=== PATIENT | female | born 1950 | race Caucasian/White ===

== ENCOUNTER → 2017-03-18 20:27 | Outpatient (CLI) | payer MEDICARE | END | disposition home or self-care (01) | LOC: D.MAMMO 14:00 | DX: Z12.31 Encounter for screening mammogram for malignant neoplasm of breast (principal) ==

== ENCOUNTER 2017-09-20 10:51 | Outpatient (CLI) | payer MEDICARE ==
[~2017-09-20] VITALS: Ht 154.9 cm; Wt 67.3 kg
--- NOTE | ~2017-09-20 | HEMODYNAMI ---
PATIENT:LAURY BERTRAND MEDICAL RECORD: [id number] : 54 LOCATION:[facility] ADMISSION DATE: 09/20/17 Generatedon:09/20/201714:15 Patient name: LAURY BERTRAND Patient #: [id number] SSN: D OB: 1950 Date of study: 09/20/2017 Page: Of Hemodynamic Procedure Report Patient Data Patient Demographics Procedure consent was obtained First Name: LAURY Gender: Female Last Name: ELZA : 1950 Middle Initial: MICHELLE Age: 67 year(s) Patient #: [id number] Race: Unknown Additional ID: [id number] Contact details [address]: [address] [place] [address] State: [place] City: [place] Zip code: [address] Past Medical History Allergies Allergen Reaction Date Comments Reported Other allergy 09/20/2017 ATIVAN, COMPAZINE, ERYTHROMYCIN BASE, PEGANONE, PREDNISONE, XANAX Admission Admission Data Admission Date: 09/20/2017 Admission Time: 10:51 Lab Results Lab Result Date: 09/20/2017 Lab Result Time: 0:00 Biochemistry Name Units Result Min Max BUN mg/dl 20 --(----)*- 7 18 Creatinine mg/dl 0.7 --(*---)-- 0.6 1.3 CBC Name Units Result Min Max Hemoglobin g/dl 13 -*(----)-- 13.5 17.5 Procedure Procedure Types Cath Procedure Diagnostic Procedure LHC LH w/Coronaries Sedation Charges Moderate Sedation up to 15 minutes PCI Procedure Coronary Stent Coronary Stent Initial Procedure Description Procedure Date Procedure Date: 09/20/2017 Procedure Start Time: 13:50 Procedure End Time: 14:13 Procedure Staff Name Function Dale Cardozo MD Performing Physician Ronald Lopez RT Monitor Kanika Velasquez RT Scrub Inocente Zhou RN Nurse Procedure Data Cath Procedure Fluoroscopy Diagnostic fluoroscopy Total fluoroscopy Time: 4.2 time: 4.2 min min Diagnostic fluoroscopy Total fluoroscopy dose: 509 dose: 509 mGy mGy Contrast Material Contrast Material Type Amount (ml) Isovue 300 91 Entry Location Entry Primary Successful Side Size Upsize Upsize Entry Closure Succes sful Closure Location (Fr) 1 (Fr) 2 (Fr) Remarks Device Remarks Femoral Right 5 Fr 6 Fr Exoseal artery Short Estimated blood loss: 10 ml Diagnostic catheters Device Type Used For End Catheter Placement MULTIPACK JL 4.0 5Fr Procedure catheter MULTIPACK 3DRC 5Fr Procedure catheter MULTIPACK Pigtail 5 Fr Procedure catheter Procedure Complications No complications Procedure Medications Medication Administration Route Dosage 0.9% NaCl I.V. 100 ml/hr Oxygen etCO2 Nasal cannula 2 l/min Heparin Flush Bag added to field 2 bags (1000units/500ml NS) Lidocaine 2% added to field 20 Versed I.V. 1 mg Fentanyl I.V. 50 mcg Fentanyl I.V. 50 mcg Versed I.V. 1 mg Heparin Bolus I.V. 6700 units Versed I.V. 0.5 mg Fentanyl I.V. 25 mcg Brilinta P.O. 180 mg Hemodynamics Rest HGB: 13 (g/dl) Heart Rate: 71 (bpm) Pressure Samples Time Site Value (mmHg) Purpose Heart Use Rate(bpm) 13:57 LV 99/-4,11 Snapshot 76 13:57 AO 105/58(78) Pullback 76 13:57 LV 112/0,13 Pullback 76 Gradients Valve Time Site 1 Site 2 Mean SEP/DFP Peak To Heart Use (mmHg) (sec/min) Peak Rate (mmHg) (bpm) Aortic 13:57 LV AO 6 21 7 76 112/0,13 105/58(78) Calculations Valve P-P Mean Valve Index Valve Source Name Gradient Area Flow (cm2) Aortic 7 6 7 6 Snapshots Pre Cath Intra NCS Post Cath Vital Signs Time Heart Resp SPO2 etCO2 NIBP Rhythm Pain Sedation Rate (ipm) (%) (mmHg) (mmHg) Status Level (bpm) 13:47:02 70 15 100 0 118/65(86) NSR 0 (11) 10(A) , No pain 13:51:39 72 22 97 28.4 108/62(86) NSR 0 (11) 10(A) , No pain 13:56:11 76 21 95 38.2 102/79(89) NSR 0 (11) 10(A) , No pain 14:00:46 78 16 92 30 111/64(85) NSR 0 (11) 9(A) , No pain 14:05:22 80 14 95 39.7 112/66(85) NSR 0 (11) 9(A) , No pain 14:10:38 83 15 95 9.7 110/58(76) NSR 0 (11) 10(A) , No pain Medications Time Medication Route Dose Verified Delivered Reason Notes Effectiveness by by 13:46:00 0.9% NaCl I.V. 100 Inocente Inocente Per physician ml/hr Winnie Zhou RN RN 13:46:10 Oxygen etCO2 2 Inocente Inocente Per physician Nasal l/min Winnie Zhou cannula RN RN 13:46:22 Heparin Flush added 2 Inocente Inocente used for Bag to bags Lorblanca Zhou procedure (1000units/500ml RN RN NS) 13:46:35 Lidocaine 2% added 20ml Inocente Inocente for local to vial Lorigan Winnie anesthetic RN RN 13:47:43 Versed I.V. 1 mg Inocente Inocente for sedation Winnie Zhou RN RN 13:47:51 Fentanyl I.V. 50 Inocente Inocente for sedation mcg Winnie Zhou RN RN 13:51:23 Fentanyl I.V. 50 Inocente Inocente for sedation mcg Winnie Zhou RN RN 13:51:31 Versed I.V. 1 mg Inocente Inocente for sedation Winnie Zhou RN RN 14:01:51 Heparin Bolus I.V. 6,700 Inocente Inocente for units Lorblanca Zhou anticoagulation RN RN 14:04:42 Versed I.V. 0.5 Inocente Inocente for sedation mg Winnie Zhou RN RN 14:04:48 Fentanyl I.V. 25 Inocente Inocente for sedation mcg Winnie Zhou RN RN 14:10:14 Brilinta P.O. 180 Inocente Inocente for mg Lorigan Winnie antiplatelet RN RN therapy Procedure Log Time Note 13:30:45 Signed procedure consent form obtained from patient. 13:30:48 Ronald MARINELLI(R) sent for patient. Start room use. 13:30:49 Time tracking: Regular hours (M-F 7:00 - 5:00) 13:30:53 Plan of Care:Hemodynamics will remain stable., Cardiac rhythm will remain stable., Comfort level will be maintained., Respiratory function will remain adequate., Patient/ family verbilizes understanding of procedure., Procedure tolerated without complication., Recovers from procedure without complications.. 13:31:09 H&P Date Dictated: 08/23/2017 Within 30 days and on chart., H&P Addendum completed by physician on day of procedure. (MUST COMPLETE FOR ALL OUTPATIENTS). 13:33:05 Lab Result : BUN 20 mg/dl 13:33:05 Lab Result : Hemoglobin 13 g/dl 13:33:05 Lab Result : Creatinine 0.7 mg/dl 13:34:13 Patient allergic to Other allergyATIVAN, COMPAZINE, ERYTHROMYCIN BASE, PEGANONE, PREDNISONE, XANAX 13:35:38 Patient received from Pre/Post Procedure Room to CCL 1 Alert and oriented. Tansferred to table in Supine position. 13:35:39 Warm blankets applied, and chelo hugger turned on for patient comfort. 13:35:39 Correct patient and procedure confirmed by team. 13:35:40 ECG and BP/O2 sat monitors applied to patient. 13:46:00 0.9% NaCl 100 ml/hr I.V. was administered by Inocente Zhou RN; Per physician; 13:46:10 Oxygen 2 l/min etCO2 Nasal cannula was administered by Inocente Zhou RN; Per physician; 13:46:11 Vital chart was started 13:46:12 Baseline sample Acquired. 13:46:16 Rhythm: sinus rhythm 13:46:18 Full Disclosure recording started 13:46:19 Pre-procedure instructions explained to patient. 13:46:20 Family in waiting room. 13:46:22 Heparin Flush Bag (1000units/500ml NS) 2 bags added to field was administered by Inocente Zhou RN; used for procedure; 13:46:22 Patient NPO since Midnight. 13:46:24 Is the patient allergic to Iodine/contrast media? No. 13:46:25 Is patient on blood thinner?No 13:46:27 Patient diabetic? No. 13:46:29 Previous problem with sedation/anesthesia? No ? 13:46:29 Snore? Yes 13:46:30 Sleep apnea? No 13:46:31 Deviated septum? No 13:46:32 Opens mouth fully? Yes 13:46:32 Sticks out tongue? Yes 13:46:34 Airway obstruction? No ? 13:46:35 Lidocaine 2% 20ml vial added to field was administered by Inocente Zhou RN; for local anesthetic; 13:46:35 Dentures? No ? 13:46:37 Pre procedure: right dorsailis pedis pulse 2+ Normal; easily identifiable; not easily obliterated 13:46:39 Patient pain scale 0/10 ?. 13:46:45 IV patent on arrival in right forearm with 0.9% NaCl at [facility]. 13:46:47 Lab results completed and on chart. 13:46:50 Right groin area was prepped with chlora-prep and draped in sterile fashion 13:46:51 Alarms reviewed by R. N. 13:46:51 Sharps counted by scrub and verified by R.N. 13:46:53 Use device set Femoral Dx 13:46:54 ACIST Syringe (74077) opened to sterile field. 13:46:55 Bag Decanter (2002S) opened to sterile field. 13:46:55 Medline Cath Pack ([id number]) opened to sterile field. 13:46:56 ACIST Hand Control (30931) opened to sterile field. 13:46:57 ACIST Manifold (42511) opened to sterile field. 13:46:58 Tegaderm 4 x 4 (1626W) opened to sterile field. 13:46:59 PERCUTANEOUS ENTRY 19GA needle opened to sterile field. 13:47:02 DIAGNOSTIC WIRE .035 260cm J wire (747476) opened to sterile field. 13:47:03 DIAGNOSTIC Multipack 5Fr catheter set ([id number]) opened to sterile field. 13:47:05 SHEATH Prelude 5Fr 0.035 (FFY-6H-27-035) opened to sterile field. 13:47:11 Physician arrived 13:47:12 --------ALL STOP TIME OUT------ 13:47:12 Final Timeout: patient, procedure, and site verified with staff and physician. All members of the team are in agreement. 13:47:13 Right groin site verified by team. 13:47:15 Physical assessment completed. ASA score P 2 - A patient with mild systemic disease as per Dale Cardozo MD. 13:47:17 Sedation plan: IV Moderate Sedation Medication:Versed, Fentanyl 13:47:43 Versed 1 mg I.V. was administered by Inocente Zhou RN; for sedation; 13:47:51 Fentanyl 50 mcg I.V. was administered by Inocente Zhou RN; for sedation; 13:50:31 Procedure started. 13:50:34 Local anesthetic to right femoral artery with Lidocaine 2% by Dale Cardozo MD.INITIAL ACCESS ONLY 13:51:23 Fentanyl 50 mcg I.V. was administered by Inocente Zhou RN; for sedation; 13:51:31 Versed 1 mg I.V. was administered by Inocente Zhou RN; for sedation; 13:52:23 A 5 Fr sheath was inserted into the Right Femoral artery 13:53:22 A MULTIPACK JL 4.0 5Fr catheter was advanced over the wire and used for Procedure. 13:54:13 Zero performed for pressure channel P1 13:55:06 Catheter exchanged over wire. 13:55:15 A MULTIPACK 3DRC 5Fr catheter was advanced over the wire and used for Procedure. 13:55:38 RCA angiography performed. 13:56:01 SHEATH Prelude 6Fr 0.035 (LMO-6J-53-035) opened to sterile field. 13:56:17 TUBING High Pressure Extension Tubing (Cas) ([id number]) opened to sterile field. 13:56:18 BMW 300cm [place] 2 J wire ([id number]) opened to sterile field. 13:56:19 INFLATOR Merit BasixCompak (GX1801) opened to sterile field. 13:57:14 Catheter removed. 13:57:21 A MULTIPACK Pigtail 5 Fr catheter was advanced over the wire and used for Procedure. 13:57:25 LV gram done using VALLE 13:57:28 Injector settings: Ml/sec: 10, Volume: 20, 13:57:37 EF : 60 % 13:57:40 LV hemodynamics recorded. 13:58:00 Catheter removed. 13:58:37 Sheath upsized to a 6 Fr Short. 13:59:00 GUIDE 6FR XBLAD 3.5 catheter ([id number]) opened to sterile field. 14:00:29 6 Fr XBLAD 3.5 guide catheter was inserted over the wire 14:01:51 Heparin Bolus 6,700 units I.V. was administered by Inocente Lorigan RN; for anticoagulation; 14:03:04 BMW wire advanced. 14:03:50 Wire advanced across lesion. 14:04:42 Versed 0.5 mg I.V. was administered by Inocente Zhou RN; for sedation; 14:04:48 Fentanyl 25 mcg I.V. was administered by Inocente Zhou RN; for sedation; 14:07:32 Place stent Inflation Number: 1 A Pressgramtronic Integrity 2.75 X 12 stent was prepped and advanced across the Mid LAD. The stent was deployed at 14 SAMPSON for 0:10 (min:sec). 14:08:15 EXOSEAL 6Fr (EX600) opened to sterile field. 14:08:25 Stent catheter was removed intact over wire. 14:08:26 Wire removed. 14:08:27 Guide catheter removed. 14:08:43 Sheath removed intact; hemostasis achieved with Exoseal to the Right Femoral artery. 14:08:45 Procedure ended.(Physican Out) 14:08:54 Fluoroscopy time 04.20 minutes. 14:08:57 Flurop Dose total: 509 14:08:57 Fluoroscopy dose: 509 mGy 14:08:59 Contrast amount:Isovue 300 91ml. 14:09:01 Sharps counted by scrub and verified by R.N. 14:10:14 Brilinta 180 mg P.O. was administered by Inocente Zhou RN; for antiplatelet therapy; 14:10:22 Insertion/operative site no bleeding no hematoma. 14:10:24 Post-op/insertion site Right Femoral artery dressed using a 4 x 4 and Tegaderm. 14:10:27 Post right femoral artery:stable, soft, clean and dry 14:10:29 Post Procedure Pulses reassessed and unchanged 14:10:31 Post-procedure physical assessment completed. ASA score P 2 - A patient with mild systemic disease as per Dale Cardozo MD. 14:10:33 Post procedure rhythm: unchanged. 14:10:35 Estimated blood loss: 10 ml 14:10:36 Post procedure instruction explained to patient.Patient verbalizes understanding. 14:10:50 Procedure type changed to Cath procedure, Diagnostic procedure, LHC, LHC w/Coronaries, Sedation Charges, Moderate Sedation up to 15 minutes, PCI procedure, Coronary Stent, Coronary Stent Initial 14:13:13 Procedure and supply charges have been captured, reviewed, submitted and are correct. 14:13:16 Procedure Complication : No complications 14:13:18 Vital chart was stopped 14:13:19 See physician's report for complete and final results. 14:13:21 Report given to Pre/Post Procedure Room. 14:13:22 Patient transfered to Pre/Post Procedure Room with Stretcher. 14:13:24 Procedure ended. 14:13:24 Full Disclosure recording stopped 14:13:27 End room use (Document Last) Intervention Summary Intervention Notes Time ActionType Lesion and Equipment Action# Pressure Duration Attributes Used 14:07:32 Place stent Mid LAD Medtronic 1 14 00:10 Integrity 2.75 X 12 stent Device Usage Item Name Manufacture Quantity Catalog Number Hospital Part Current Minimal Lot# / Charge Number Stock Stock Serial# Code ACIST Syringe Acist 1 34049 [id number] 111359 612783 20 (70894) [employer] Bag Decanter Microtek 1 2001S 958059 07248 086338 5 (2001S) Medical Inc. Medline Cath Cardinal 1 [id number] 154018 52500 284238 5 Pack Health ([id number]) ACIST Hand Acist 1 15887 830511 410742 795716 5 Control (62177) [employer] Inc ACIST Manifold Acist 1 84339 189177 301531 740632 5 (81016) Medical Systems Inc Tegaderm 4 x 4 3M 1 1626W 974897 231111 747838 5 (1626W) PERCUTANEOUS Cook Medical 1 R89115 096140 416340 5 ENTRY 19GA needle DIAGNOSTIC WIRE St Nagi 1 817052 966222 634446 411084 30 .035 260cm J wire (710391) DIAGNOSTIC Cardinal 1 TC6861 792022 38719 194492 30 Multipack 5Fr Health catheter set (US8793) SHEATH Prelude Merit 1 GDM-0T-87-035 556229 667260 565506 5 5Fr 0.035 Medical (KXA-1Y-04-035) MULTIPACK JL Cardinal 1 532752 5 4.0 5Fr Health catheter MULTIPACK 3DRC Cardinal 1 283094 5 5Fr catheter Health SHEATH Prelude Merit 1 AIH-2L-27-35 401222 9354357 127521 5 6Fr 0.035 Medical (XUL-5E-46-035) TUBING High Merit 1 [id number] 504248 62860 076342 10 Pressure Medical Extension Tubing (Cardozo) ([id number]) BMW 300cm Garner 1 [id number] 529339 734254 349891 5 [place] 2 J Vascular wire ([id number]) INFLATOR Merit Merit 1 GR6678 026211 847463 094918 15 [facility] (AI7462) MULTIPACK Cardinal 1 465632 5 Pigtail 5 Fr Health catheter INTEGRITY OTW Medtronic 1 [id number] 432932 136087 5 [id number] 2.75 X 12 stent ([id number]) EXOSEAL 6Fr Cardinal 1 EX600 950454 412090 510647 10 (EX600) Health GUIDE 6FR XBLAD Cardinal 1 [id number] 015407 068172 242028 10 3.5 catheter Tiltap ([id number]) Signature Audit [place] Stage Time Signature Unsigned Intra-Procedure 09/20/2017 Ronald Lopez 2:15:29 PM RT(R) Signatures Monitor : Ronald Lopez RT Signature : Date : Time : [place] [address] [place] [address]
[2017-09-20] MEDS ORDERED: PROZAC20 MG PO (11:46)
[2017-09-20] MEDS ORDERED: ZYPREXA2.5 MG PO (11:46)
[2017-09-20] MEDS ORDERED: KLONOPIN0.5 MG PO (11:47)
[2017-09-20] MEDS ORDERED: DEPAKOTE ER500 MG PO (11:47)
[2017-09-20] MEDS ORDERED: [UNRECOGNIZED DRUG - OTHER] (11:49)
[2017-09-20 11:56] VITALS: BP 113/42; BMI 28.0
[2017-09-20 12:04] VITALS: BP 113/42; Ht 154.9 cm; Wt 67.3 kg
[2017-09-20 12:23] LABS: BASOPHILS 0.4 % (0-2); EOSINOPHILS 7.5 % (0-7); HEMATOCRIT 38.5 % (36.0-48.0); IMMATURE GRANULOCYTES 0.2 % (0-5); LYMPHOCYTES 30.8 % (15-50); MCH 31.8 pg (26.0-34.0); MCHC 33.8 g/dL (31.0-37.0); MCV 94.1 fL (80.0-100.0); MEAN PLATELET VOLUME 10.3 fL (7.4-10.4); NEUTROPHILS 48.1 % (40-80); PLATELET COUNT 194 10x3/uL (130-400); RBC 4.09 10x6/uL (4.00-5.40); RDW 13.5 % (11.5-14.5); WBC 5.5 10x3/uL (4.8-10.8)
[2017-09-20 12:29] LABS: CALC OSMOLALITY 267 mosm/kg (275-300); CALCIUM 8.7 mg/dL (8.5-10.1); CHLORIDE - SERUM 100 mmol/L (98-107); CREATININE - SERUM 0.7 mg/dL (0.6-1.3); GLUCOSE 75 mg/dL (74-106); SODIUM 133 mmol/L (136-145); UREA NITROGEN 20 mg/dL (7-18); eGFR NON AFRICAN AMERICAN 89 mL/min (90-120)
[2017-09-20 12:30] LABS: POTASSIUM - SERUM 4.2 mmol/L (3.5-5.1)
[2017-09-20] MEDS ORDERED: BRILINTA90 MG PO (14:26)
== END 2017-09-20 18:19 | disposition home or self-care (01) ==
LOC: D.CATH 10:51
PROVIDERS: Internal Medicine Cardiovascular Disease
DX: I20.9 Angina pectoris, unspecified (principal); R55 Syncope and collapse; R94.31 Abnormal electrocardiogram [ECG] [EKG]; Z01.812 Encounter for preprocedural laboratory examination

== ENCOUNTER 2019-05-15 08:00 | Outpatient (CLI) | payer MEDICARE ==
[2017-09-20 12:04] VITALS: BMI 28.0
[~2019-05-15 08:00] MED LIST: BRILINTA90 MG PO; DEPAKOTE ER500 MG PO; KLONOPIN0.5 MG PO; PROZAC20 MG PO; ZYPREXA2.5 MG PO; [UNRECOGNIZED DRUG - OTHER]
== END 2019-05-15 23:59 | disposition home or self-care (01) ==
LOC: D.MAMMO 08:00
PROVIDERS: ATTEND Family Medicine
DX: Z12.31 Encounter for screening mammogram for malignant neoplasm of breast (principal)

== ENCOUNTER → 2019-11-21 07:57 | Outpatient (CLI) | payer MEDICARE ==
[2017-09-20 12:04] VITALS: BMI 28.0
== END | disposition home or self-care (01) ==
LOC: D.HCCARDIO 07:57
PROVIDERS: ATTEND Internal Medicine Cardiovascular Disease
DX: I25.10 Atherosclerotic heart disease of native coronary artery without angina pectoris (principal)